=== PATIENT | male | born 1995 | race African-American/Black ===

== ENCOUNTER 2017-09-26 00:34 | Emergency (ER) | payer BC ==
[~2017-09-26] VITALS: Ht 180.3 cm; Wt 81.4 kg
[2017-09-26 00:40] VITALS: BP 165/96
[2017-09-26] MEDS ORDERED: PHEN100T82 PO (01:25)
--- NOTE | 2017-09-26 01:27 | PHYS DOC ---
General Chief Complaint: dysuria Stated Complaint: BLEEDING FROM PENIS Time Seen by MD: 00:[id number] Source: patient Exam Limitations: no limitations Problems: History of Present Illness Initial Comments Patient is a 22-year-old male who comes the ED complaining of dysuria. Patient states that he was seen at the [facility] yesterday and after urine studies were obtained he was given "4 pills and a shot." Based on the history it is assumed that he received Rocephin and Zithromax and GC chlamydia studies are pending. He says today his urinary symptoms are improving but still present. About an hour before ED arrival he says he developed some numbness in his testicles. He denies any fever chills or body aches and although he was having penile discharge that has resolved. No swelling in the groin no testicular pain or swelling no visible skin changes. He is very anxious vital signs are stable. Timing/Duration: other Severity: mild Modifying Factors: improves with medication Associated Symptoms: other Allergies: Coded Allergies: No Known Drug Allergies (Unverified , 09/26/17) Past Medical History Medical History: no pertinent history Surgical History: noncontributory Social History Smoker: non-smoker Alcohol: none Drugs: none Review of Systems Constitutional: denies chills, denies fever Respiratory: denies cough, denies shortness of breath Cardiovascular: denies chest pain, denies palpitations Gastrointestinal: denies abdominal pain, denies nausea, denies vomiting Genitourinary: see HPI Musculoskeletal: denies back pain, denies neck pain Skin: see HPI Physical Exam General Appearance: WD/WN, mild distress (anxious) Ear, Nose, Throat: hearing grossly normal, normal ENT inspection Neck: non-tender, supple Respiratory: normal breath sounds, no respiratory distress Gastrointestinal: non tender, soft Rectal: deferred Back: no CVA tenderness, no vertebral tenderness 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 No ultrasound necessary given the patient's symptoms. Once he was advised that he had been adequately treated for the possibility of gonorrhea and chlamydial infection he became much calm her and stated he was feeling better. I discussed Pyridium for his persistent dysuria symptoms and close follow-up with the health Department for results of yesterday's testing. The patient was agreeable to this and denied any complaints on discharge. Pyridium 100 mg by mouth given Departure Time of Disposition: : Disposition: HOME, SELF-CARE Diagnosis: urethritis Condition: GOOD Patient Instructions: Urethritis, Adult Additional Instructions: As discussed, regarding her concerns medication she received at the clinic yesterday should be sufficient to resolve any potential infection. Prescription: Pyridium for symptomatic control while antibiotics take effect. Recommend barrier protection for all sexual activity. Follow-up at the clinic on Thursday for results of your tests from yesterday. Return to ED with new or changing symptoms. TOÑO YING DO Sep 26, 2017 01:27
[2017-09-26] MEDS ORDERED: PHENAZOPYRIDINE 100 MG TABLET. PO ONE (01:30)
[2017-09-26 02:35] LABS: BILIRUBIN,URINE NEG (NEG); CLARITY,URINE CLEAR; COLOR,URINE YELLOW; GLUCOSE,URINE NEG (NEG)
[2017-09-26 02:36] LABS: BACTERIA,URINE FEW /HPF (0-FEW); NITRITE,URINE NEG (NEG); UROBILINOGEN,URINE 0.2 mg/dL (0.2 mg/dL); WBC,URINE 0 /HPF (0-4)
== END 2017-09-26 01:30 | disposition home or self-care (01) ==
LOC: ER 00:34
DX: N34.2 Other urethritis (principal)
CPT/HCPCS: 81001; 99283